=== PATIENT | female | born 2000 | race Caucasian/White ===

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

== ENCOUNTER 2018-04-25 13:18 | Emergency (ER) | payer MEDICAID ==
[~2018-04-25] VITALS: Ht 152.4 cm; Wt 63.5 kg
[2018-04-25 13:35] VITALS: Ht 152.4 cm; Wt 63.5 kg
[2018-04-25 15:41] VITALS: BP 118/66
== END 2018-04-25 15:41 | disposition home or self-care (01) ==
LOC: ED 13:18
DX: J06.9 Acute upper respiratory infection, unspecified (principal)